=== PATIENT | female | born 1985 | race Hispanic/Latino ===

== ENCOUNTER 2021-12-14 22:47 | Observation (INO) | payer BC, MEDICAID ==
[~2021-12-14] VITALS: Ht 170.2 cm; Wt 86.2 kg
[2021-12-14 23:15] LABS: BASOPHILS % (AUTO) 0.4 % (0.0-5.0); EOSINOPHILS % (AUTO) 0.9 % (0.0-8.0); HEMATOCRIT 42.2 % (36-48); LYMPHOCYTES % (AUTO) 12.9 % (21.0-51.0); MEAN CORPUSCULAR HEMOGLOBIN 30.7 pg (27.0-33.0); MEAN CORPUSCULAR HGB CONC 35.3 g/dL (32.0-36.0); NEUTROPHILS % (AUTO) 82.4 % (40.0-77.0); PLATELET COUNT (AUTO) 255 K/uL (130-400); RED BLOOD CELL COUNT(AUTO) 4.85 MIL/uL (4.00-5.50); RED CELL DISTRIBUTION WIDTH 12.9 % (11.0-15.5); WHITE BLOOD COUNT (AUTO) 16.1 K/uL (4.8-10.8)
[2021-12-14 23:28] LABS: CREATININE 0.7 mg/dL (0.5-1.5); POTASSIUM 3.4 mmol/L (3.5-5.1)
[2021-12-14 23:32] LABS: ALBUMIN 3.9 g/dL (3.5-5.0); TOTAL PROTEIN, SERUM 7.3 g/dL (6.0-8.3)
[2021-12-14 23:50] LABS: APPEARANCE,URINE CLEAR (CLEAR); BILIRUBIN,URINE NEGATIVE (NEGATIVE); COLOR,URINE YELLOW (YELLOW); GLUCOSE, URINE (UA) NEGATIVE (NEGATIVE); KETONES,URINE 5 mg/dL (NEGATIVE); LEUKOCYTE ESTERASE ,URINE NEGATIVE (NEGATIVE); NITRATE,URINE NEGATIVE (NEGATIVE); OCCULT BLOOD,URINE NEGATIVE (NEGATIVE); PROTEIN,URINE NEGATIVE (NEGATIVE); UROBILINOGEN,URINE 0.2 mg/dL (0.2-1.0)
[2021-12-15] MEDS ORDERED: MORPHINE 4 MG SYG ONE (00:03)
[2021-12-15] MEDS ORDERED: ONDANSETRON 4MG INJ ONE (00:03)
[2021-12-15] MEDS ORDERED: ZOSYN 3.375GM +NS 50ML IV ONE (02:30)
[2021-12-15] MEDS ORDERED: NS-20 MEQ KCL 1000ML 1,000 ML IV ONE (02:57)
[2021-12-15 03:00] LABS: PHOSPHORUS 4.1 mg/dL (2.5-4.9)
[2021-12-15] MEDS ORDERED: ACETAMINOPHEN 650 MG SUPPOSITORY RC PRN (03:00)
[2021-12-15] MEDS ORDERED: POTASSIUM CHLORIDE 20MEQ/100ML 100 ML IV PRN (03:00)
[2021-12-15] MEDS ORDERED: ONDANSETRON 4MG INJ IV PRN (03:00)
[2021-12-15] MEDS ORDERED: MORPHINE 4 MG SYG IV PRN (03:00)
[2021-12-15] MEDS ORDERED: MORPHINE 2 MG SYG IV PRN (03:00)
[2021-12-15] MEDS ORDERED: NS-20 MEQ KCL 1000ML 1,000 ML IV SCH (03:30)
[2021-12-15 04:04] LABS: INR 0.93 (0.85-1.15); PROTHROMBIN TIME 9.8 SEC (9.6-11.6)
[2021-12-15 04:05] LABS: PARTIAL THROMBOPLASTIN TIME 23.9 SEC (26.3-35.5)
[2021-12-15 04:25] VITALS: BP 131/78
[2021-12-15] MEDS: LACTATED RINGERS 1000ML 1,000 ML IV SCH ×2 (04:56→16:20)
[2021-12-15] MEDS ORDERED: ZOSYN 3.375GM+NS 50ML 50 ML IV SCH (05:00)
[2021-12-15] MEDS ORDERED: PHARMACY COMMUNICATION MISC SCH (06:30)
[2021-12-15 08:00] VITALS: BP 126/82
[2021-12-15] MEDS: FAMOTIDINE 20MG VIAL IV SCH ×2 (09:34→20:59)
[2021-12-15] MEDS: LIDOCAINE HCL-MPF 1% 2ML VIAL IV PRN ×2 (10:03→20:59)
[2021-12-15 12:00] VITALS: BP 131/86
[2021-12-15] MEDS: ZOSYN 3.375GM+NS 50ML 50 ML IV SCH ×2 (14:12→22:53)
[2021-12-15 16:00] VITALS: BP 135/91
[2021-12-15 19:40] VITALS: BP 144/87
[2021-12-15 23:23] VITALS: BP 140/98
[2021-12-16] VITALS (22 sets, daily range): BP systolic 113–143; BP diastolic 64–97
[2021-12-16] MEDS ORDERED: ONDANSETRON 4MG INJ ONE (01:24)
[2021-12-16] MEDS ORDERED: MIDAZOLAM HCL 1 MG/ML 2ML VIAL ONE (01:24)
[2021-12-16] MEDS ORDERED: FENTANYL CITRATE PF 50 MCG/1 ML 2ML VIAL ONE ×2 (01:24→01:59)
[2021-12-16] MEDS ORDERED: PROPOFOL 10 MG/ML 20ML VIAL IV ONE (01:24)
[2021-12-16] MEDS ORDERED: HYDROMORPHONE 1 MG INJ ONE (01:39)
[2021-12-16] MEDS ORDERED: ROCURONIUM 10MG/1ML SYR 10 MG/ML ML ONE (01:49)
[2021-12-16] MEDS ORDERED: BUPIVACAINE/EPI/PF 0.25% 50 ML VIAL IJ ONE (01:59)
[2021-12-16] MEDS ORDERED: NEOSTIGMINE 5MG/5ML SYR IV ONE (02:08)
[2021-12-16] MEDS ORDERED: GLYCOPYRROLATE 1 MG/5 ML SYRINGE ONE (02:08)
[2021-12-16] MEDS ORDERED: BUPIVACAINE/PF 0.25% 30ML VIAL IJ ONE (02:10)
[2021-12-16] MEDS ORDERED: KETOROLAC 30MG VIAL (30MG/ML) ONE (02:33)
[2021-12-16] MEDS ORDERED: MEPERIDINE-PF 25 MG/ML SYG ONE (02:52)
[2021-12-16] MEDS ORDERED: ACETAMINOPHEN WITH CODEINE 1 TAB TAB PO PRN (04:30)
[2021-12-16] MEDS: ZOSYN 3.375GM+NS 50ML 50 ML IV SCH ×2 (05:03→13:44)
[2021-12-16 05:40] LABS: BASOPHILS % (AUTO) 0.4 % (0.0-5.0); EOSINOPHILS % (AUTO) 0.5 % (0.0-8.0); HEMATOCRIT 35.5 % (36-48); LYMPHOCYTES % (AUTO) 23.1 % (21.0-51.0); MEAN CORPUSCULAR HEMOGLOBIN 30.8 pg (27.0-33.0); MEAN CORPUSCULAR HGB CONC 34.4 g/dL (32.0-36.0); MEAN CORPUSCULAR VOLUME 89.6 fL (79-99); MONOCYTES % (AUTO) 4.9 % (3.0-13.0); NEUTROPHILS % (AUTO) 70.3 % (40.0-77.0); PLATELET COUNT (AUTO) 269 K/uL (130-400); RED BLOOD CELL COUNT(AUTO) 3.96 MIL/uL (4.00-5.50); RED CELL DISTRIBUTION WIDTH 12.6 % (11.0-15.5); WHITE BLOOD COUNT (AUTO) 10.3 K/uL (4.8-10.8)
[2021-12-16 06:02] LABS: ALBUMIN 3.1 g/dL (3.5-5.0); CREATININE 0.8 mg/dL (0.5-1.5); POTASSIUM 3.4 mmol/L (3.5-5.1); TOTAL PROTEIN, SERUM 6.3 g/dL (6.0-8.3)
[2021-12-16] MEDS: FAMOTIDINE 20MG VIAL IV SCH (10:04)
[2021-12-16] MEDS ORDERED: POTASSIUM CHLORIDE 20MEQ/100ML 100 ML IV PRN (11:00)
[2021-12-16] MEDS ORDERED: POTASSIUM CHLORIDE 10% ELIXIR 20 MEQ/15 ML UDCUP PO PRN (11:00)
[2021-12-16] MEDS: KCL 20 MEQ ERTAB PO PRN ×2 (11:00→14:24)
[2021-12-16] MEDS ORDERED: LIDOCAINE HCL-MPF 1% 2ML VIAL IV PRN (11:00)
== END 2021-12-16 19:12 | disposition still patient (30) ==
LOC: EDH 22:47 → INTOOBSV 22:48 → EDHIP 22:48 → 3AH 12-15 04:25
PROVIDERS: ADMIT Internal Medicine; ATTEND Internal Medicine
DX: U07.1 COVID-19 (principal); K35.80 Unspecified acute appendicitis; D72.829 Elevated white blood cell count, unspecified; E87.6 Hypokalemia; Z79.899 Other long term (current) drug therapy; Z98.890 Other specified postprocedural states
CPT/HCPCS: 99285; 83735; 84100; 80053 ×2; 83690; 85025 ×2; 81003; 81025; 36415 ×3; 96376 ×2; 96365; 96366 ×2; 96375 ×2; 84132 ×2; 85610; 85730; 86850; 86900; 86901; 87040 ×2; 87635; 74176; 93005; 44970; J7030; C9803; J7120; S0028 ×3; J2405 ×2; J2270 ×2; J3480 ×3; J2543 ×5; J3490 ×4; C1769 ×3; A4649 ×4; G0378 ×3; J3010 ×2; J1170; J2710; S0020 ×2; J2250; J1885; J2175; J2704